=== PATIENT | male | born 1985 | race Caucasian/White ===

== ENCOUNTER 2024-01-28 06:37 | Emergency (ER) | payer OTHER ==
[~2024-01-28] VITALS: Ht 165.1 cm; Wt 71.8 kg
[2024-01-28 06:37] VITALS: TEMP 97.4; O2SAT 100
[2024-01-28 06:40] VITALS: BP 120/74
[2024-01-28] MEDS ORDERED: CEPH500T PO (07:09)
== END 2024-01-28 07:23 | disposition home or self-care (01) ==
LOC: M ED 06:37
DX: J02.9 Acute pharyngitis, unspecified (principal); F17.200 Nicotine dependence, unspecified, uncomplicated; Z79.2 Long term (current) use of antibiotics